=== PATIENT | male | born 1990 | race Hispanic/Latino ===

== ENCOUNTER 2025-05-03 18:42 | Emergency (ER) | payer OTHER, SELFPAY ==
[2025-05-03 19:46] LABS: #Basophils 0.05 10x3/uL (0.0-0.2); #Eosinophils 0.19 10x3/uL (0.0-0.7); #Monocytes 0.56 10x3/uL (0.11-0.59); #Neutrophils 4.82 10x3/uL (1.40-6.50); %Basophils 0.6 % (0.0-1.0); %Eosinophils 2.1 % (0.0-10.0); %Lymphocytes 37.5 % (21.0-51.0); %Monocytes 6.2 % (0.0-10.0); %Neutrophils 53.4 % (42.0-75.0); Hematocrit 38.6 % (42.0-52.0); Hemoglobin 13.0 g/dL (14.0-18.0); Mean Corpuscular Hemoglobin 31.4 pg (27.0-31.0); Mean Corpuscular Volume 93.2 fL (78.0-98.0); Platelet Count 356 10x3/uL (130-400); Red Blood Cell (RBC) Count 4.14 mill/uL (4.70-6.10); White Blood Cell (WBC) Count 9.02 10x3/uL (4.8-10.8)
[2025-05-03 20:01] LABS: ALT (SGPT) 13 U/L (Less than 45); AST (SGOT) 13 U/L (11-34); Albumin 3.9 g/dL (3.1-4.5); Alkaline Phosphatase 66 U/L (40-110); Anion Gap 14 mmol/L (10-20); BUN (Urea Nitrogen) 9 mg/dL (8.9-20.6); Bilirubin, Total 0.3 mg/dL (0.3-1.2); Calc. Creatinine Clearance 0 mL/min (70-130); Calcium 9.4 mg/dL (7.8-10.44); Carbon Dioxide 25 mmol/L (22-29); Chloride 104 mmol/L (98-107); Globulin 3.6 g/dL (2.4-3.5); Glucose 222 mg/dL (70-105); Potassium 4.2 mmol/L (3.5-5.1); Sodium 139 mmol/L (136-145)
[2025-05-03] MEDS ORDERED: Ketorolac Tromethamine 30 MG (1 mL) VIAL ONE (21:29)
== END 2025-05-03 21:50 | disposition home or self-care (01) ==
LOC: ERS 18:42
DX: M79.671 Pain in right foot (principal); E10.9 Type 1 diabetes mellitus without complications; I10 Essential (primary) hypertension; Z79.4 Long term (current) use of insulin
CPT/HCPCS: 36415; 80053; 85025; 96372; 99283; J1885; J2270